=== PATIENT | male | born 1960 | race Hispanic/Latino ===

== ENCOUNTER → 2017-06-09 | Outpatient (CLI) | payer MEDICAID ==
[~2017-06-09] MED LIST: ASPI-1181 PO; ATOR10TA69 PO; CARV12.511 PO; FENO145T37 PO; TRIH2TAB3 PO
== END | disposition home or self-care (01) ==
LOC: EDUNIT# 09:30 → SHCH 10:09
PROVIDERS: ATTEND Internal Medicine Cardiovascular Disease
DX: E78.5 Hyperlipidemia, unspecified (principal); R01.1 Cardiac murmur, unspecified
CPT/HCPCS: 93306

== ENCOUNTER 2017-10-12 07:54 | Day surgery (SDC) | payer MEDICAID ==
[2017-10-08 12:19] LABS: BASOPHILS % (AUTO) 0.6 % (0.0-5.0); EOSINOPHILS % (AUTO) 2.5 % (0.0-8.0); HEMATOCRIT 35.4 % (42-54); LYMPHOCYTES % (AUTO) 14.8 % (21.0-51.0); MEAN CORPUSCULAR HEMOGLOBIN 29.8 pg (27.0-33.0); MEAN CORPUSCULAR HGB CONC 34.8 g/dL (32.0-36.0); MEAN CORPUSCULAR VOLUME 85.6 fL (79-99); MONOCYTES % (AUTO) 10.9 % (3.0-13.0); NEUTROPHILS % (AUTO) 71.2 % (40.0-77.0); PLATELET COUNT (AUTO) 160 K/uL (130-400); RED BLOOD CELL COUNT(AUTO) 4.14 MIL/uL (4.50-6.20); WHITE BLOOD COUNT (AUTO) 5.4 K/uL (4.8-10.8)
[2017-10-08 12:23] VITALS: BP 141/66
[2017-10-08 12:35] LABS: INR 1.09 (0.85-1.15); PROTHROMBIN TIME 11.4 SEC (9.6-11.6)
[2017-10-08 12:39] LABS: CREATININE 1.6 mg/dL (0.5-1.5); POTASSIUM 4.1 mmol/L (3.5-5.1)
[~2017-10-12] VITALS: Ht 160 cm; Wt 76.2 kg
[2017-10-12] VITALS (26 sets, daily range): BP systolic 87–215; BP diastolic 46–122
[2017-10-12] MEDS ORDERED: SODIUM CHLORIDE 0.9% 1000ML 1,000 ML IV SCH (08:00)
[2017-10-12] MEDS ORDERED: LIDOCAINE HCL 2% VISCOUS 15 ML UDCUP PO SCH (08:30)
[2017-10-12] MEDS ORDERED: MIDAZOLAM HCL 1 MG/ML 2ML VIAL ONE ×3 (09:32→13:10)
[2017-10-12] MEDS: FENTANYL CITRATE PF 50 MCG/1 ML 2ML VIAL ONE (12:56)
[2017-10-12] MEDS ORDERED: FLUMAZENIL 0.1MG/1ML 5ML VIAL IV ONE (13:16)
[2017-10-12] MEDS ORDERED: HYDRALAZINE HCL 20 MG/ML VIAL ONE (13:17)
[2017-10-12] MEDS ORDERED: FENTANYL CITRATE PF 50 MCG/1 ML 2ML VIAL IVP ONE ×3 (17:15→17:30)
[2017-10-12] MEDS ORDERED: MIDAZOLAM HCL 1 MG/ML 2ML VIAL IVP ONE ×2 (17:30)
== END 2017-10-12 15:30 ==
LOC: DAH 07:54
PROVIDERS: ATTEND Internal Medicine Cardiovascular Disease
DX: D15.1 Benign neoplasm of heart (principal); I12.9 Hypertensive chronic kidney disease with stage 1 through stage 4 chronic kidney disease, or unspecified chronic kidney disease; E11.22 Type 2 diabetes mellitus with diabetic chronic kidney disease; N18.9 Chronic kidney disease, unspecified; Z82.49 Family history of ischemic heart disease and other diseases of the circulatory system; Z90.5 Acquired absence of kidney; F20.9 Schizophrenia, unspecified; Z79.899 Other long term (current) drug therapy; Z87.891 Personal history of nicotine dependence; Z68.29 Body mass index [BMI] 29.0-29.9, adult
CPT/HCPCS: 36415; 80048; 85025; 85610; 85730; 93312; A4606; J0360; J2250 ×3; J3010; J7030; J3490

== ENCOUNTER → 2017-12-17 | Outpatient (CLI) | payer MEDICAID | END | disposition home or self-care (01) | LOC: RAH 08:25 | PROVIDERS: ATTEND Internal Medicine Gastroenterology | DX: R13.10 Dysphagia, unspecified (principal) | CPT/HCPCS: 74220 ==

== ENCOUNTER → 2018-04-13 | Outpatient (CLI) | payer MEDICAID ==
[~2018-04-13] MED LIST changes: +LIDOCAINE HCL MPF 1% 5ML VIAL ONE
[2018-04-13 09:36] LABS: INR 1.07 (0.85-1.15); PARTIAL THROMBOPLASTIN TIME 32.3 SEC (26.3-35.5); PROTHROMBIN TIME 11.2 SEC (9.6-11.6)
== END | disposition home or self-care (01) ==
LOC: RAH 08:30
PROVIDERS: ATTEND Internal Medicine Medical Oncology
DX: E04.1 Nontoxic single thyroid nodule (principal)
CPT/HCPCS: 36415; 60100; 76942; 85610; 85730; 88161; 88173; 88305 ×2; J3490

== ENCOUNTER → 2018-04-20 | Outpatient (CLI) | payer MEDICAID ==
[~2018-04-20] MED LIST changes: -LIDOCAINE HCL MPF 1% 5ML VIAL ONE
== END | disposition home or self-care (01) ==
LOC: RAH 12:40
PROVIDERS: ATTEND Internal Medicine Medical Oncology
DX: M81.0 Age-related osteoporosis without current pathological fracture (principal); Z85.528 Personal history of other malignant neoplasm of kidney
CPT/HCPCS: 78306; A9503

== ENCOUNTER 2018-10-25 05:36 | Inpatient (IN) | payer MEDICAID | END 2018-10-29 18:10 | disposition home or self-care (01) | LOC: DAH 05:36 → 2AH 10-27 14:22 → 2CV 05:37 → 2DH 10-27 21:15 | PROC: 02Q50ZZ Repair Atrial Septum, Open Approach (ICD-10-PCS; principal; 2018-10-25 10:34) | PROC: B2101ZZ Fluoroscopy of Single Coronary Artery using Low Osmolar Contrast (ICD-10-PCS; 2018-10-25 10:34) | PROC: 4A023N7 Measurement of Cardiac Sampling and Pressure, Left Heart, Percutaneous Approach (ICD-10-PCS; 2018-10-25 10:34) | PROC: B2151ZZ Fluoroscopy of Left Heart using Low Osmolar Contrast (ICD-10-PCS; 2018-10-25 10:34) | PROC: 02B Heart and Great Vessels, Excision (ICD-10-PCS; 2018-10-25 10:34) | DX: D15.1 Benign neoplasm of heart (principal); E11.22 Type 2 diabetes mellitus with diabetic chronic kidney disease; Q21.1 Atrial septal defect; Q25.0 Patent ductus arteriosus; D62 Acute posthemorrhagic anemia; N18.9 Chronic kidney disease, unspecified; I12.9 Hypertensive chronic kidney disease with stage 1 through stage 4 chronic kidney disease, or unspecified chronic kidney disease; E78.5 Hyperlipidemia, unspecified; Z87.891 Personal history of nicotine dependence ==

== ENCOUNTER 2018-11-09 21:31 | Observation (INO) | payer MEDICAID ==
[~2018-11-09] VITALS: Ht 160 cm; Wt 83.5 kg
[~2018-11-09 21:31] MED LIST changes: -FENO145T37 PO
[2018-11-09 21:48] LABS: BASOPHILS % (AUTO) 1.2 % (0.0-5.0); EOSINOPHILS % (AUTO) 1.9 % (0.0-8.0); HEMATOCRIT 26.3 % (42-54); LYMPHOCYTES % (AUTO) 11.5 % (21.0-51.0); MEAN CORPUSCULAR HEMOGLOBIN 29.6 pg (27.0-33.0); MEAN CORPUSCULAR HGB CONC 34.3 g/dL (32.0-36.0); MEAN CORPUSCULAR VOLUME 86.4 fL (79-99); MONOCYTES % (AUTO) 10.1 % (3.0-13.0); NEUTROPHILS % (AUTO) 75.3 % (40.0-77.0); PLATELET COUNT (AUTO) 224 K/uL (130-400); RED BLOOD CELL COUNT(AUTO) 3.04 MIL/uL (4.50-6.20); RED CELL DISTRIBUTION WIDTH 15.1 % (11.0-15.5); WHITE BLOOD COUNT (AUTO) 8.9 K/uL (4.8-10.8)
[2018-11-09] MEDS ORDERED: ASPIRIN 325 MG TABLET ONE (21:51)
[2018-11-09] MEDS ORDERED: FUROSEMIDE 10 MG/ML 4ML VIAL ONE (21:58)
[2018-11-09] MEDS ORDERED: FUROSEMIDE 10 MG/ML 2ML VIAL ONE (21:58)
[2018-11-09 22:00] LABS: INR 1.09 (0.85-1.15); PARTIAL THROMBOPLASTIN TIME 33.5 SEC (26.3-35.5); PROTHROMBIN TIME 11.4 SEC (9.6-11.6)
[2018-11-09 22:06] LABS: B-TYPE NATRIURETIC PEPTIDE 181 pg/mL (0-100)
[2018-11-09 22:12] LABS: ABG BASE EXCESS -2.1 mmol/L (-2.0-3.0); ABG HCO3 20.9 mmol/L (21.0-28.0); ABG OXYGEN SATURATION 95.1 % (95.0-99.0); ABG PCO2 31 mmHg (35-48)
[2018-11-09 22:14] LABS: CREATININE 1.4 mg/dL (0.5-1.5); POTASSIUM 3.9 mmol/L (3.5-5.1)
[2018-11-09 22:24] LABS: ALBUMIN 2.7 g/dL (3.5-5.0); BILIRUBIN,TOTAL 0.4 mg/dL (0.2-1.0); TOTAL PROTEIN, SERUM 6.2 g/dL (6.0-8.3)
[2018-11-09] MEDS ORDERED: NITROGLYCERIN 1GM/1 INCH PACKET TD ONE (23:51)
[2018-11-10] MEDS ORDERED: NITROGLYCERIN 1GM/1 INCH PACKET TD SCH
[2018-11-10 04:12] LABS: TROPONIN I 0.05 ng/mL (0.00-0.06)
[2018-11-10] MEDS ORDERED: FUROSEMIDE 20 MG TABLET PO SCH (09:00)
[2018-11-10] MEDS ORDERED: NITROGLYCERIN 1GM/1 INCH PACKET TD ONE (10:44)
[2018-11-10 11:05] LABS: CREATINE KINASE, TOTAL 90 U/L (21-232); MYOGLOBIN 117 ng/mL (10-92); TROPONIN I < 0.04 ng/mL (0.00-0.06)
--- NOTE | 2018-11-10 11:43 | NUR ---
[facility] MET WITH PT AND SISTER HAYES LASSITER [phone]. PT ON SSD, LIVES WITH FATHER AND 2 SISTERS. PT IS INDEPENDENT OF ADLS, NO DME ( HAS ACCESS TO [facility], W/C) NO IN HOME CARE SERVICES. HAS RX COVERAGE. PLAN IS HOME WITH FAMILY Addendum: 11/10/18 at 1145 by AMNA BETANCUR Amended: Links added.
[2018-11-10] MEDS ORDERED: ACETAMINOPHEN-CODEINE 300/30MG TAB PO PRN ×2 (14:30)
[2018-11-10] MEDS ORDERED: GLUCAGON 1MG KIT 1 MG ML IM PRN (14:30)
[2018-11-10] MEDS ORDERED: ALBUTEROL SULFATE 0.083% 2.5 MG/3 ML INH IH PRN (14:30)
[2018-11-10] MEDS ORDERED: NITROGLYCERIN 0.4 MG SL TAB SL PRN (14:30)
[2018-11-10] MEDS ORDERED: GUAIFENESIN-DM 200/20 MG 10 ML PO PRN (14:30)
[2018-11-10] MEDS ORDERED: ZOLPIDEM TARTRATE 5 MG TAB PO PRN (14:30)
[2018-11-10] MEDS ORDERED: POTASSIUM CHLORIDE 20 MEQ ERTAB PO PRN (14:30)
[2018-11-10] MEDS ORDERED: POTASSIUM CHLORIDE 10% ELIXIR 20 MEQ/15 ML UDCUP PO PRN (14:30)
[2018-11-10] MEDS ORDERED: LACTULOSE 20 GM/30 ML UDCUP PO PRN (14:30)
[2018-11-10] MEDS ORDERED: POTASSIUM CHLORIDE 20MEQ/100ML 100 ML IV PRN (14:30)
[2018-11-10] MEDS ORDERED: DEXTROSE 50%-WATER 50 ML DISP.SYRIN IV PRN (14:30)
[2018-11-10] MEDS ORDERED: DIPHENHYDRAMINE HCL 25 MG CAPSULE PO PRN (14:30)
[2018-11-10] MEDS ORDERED: ONDANSETRON HCL 4 MG/2 ML VIAL IV PRN (14:30)
[2018-11-10] MEDS ORDERED: LIDOCAINE HCL-MPF 1% 2ML VIAL IVP PRN (14:30)
[2018-11-10] MEDS ORDERED: ACETAMINOPHEN 325 MG TAB PO PRN ×2 (14:30)
[2018-11-10] MEDS ORDERED: NIFE30TA91 PO (14:56)
[2018-11-10] MEDS ORDERED: PRAV20TA4 PO (14:56)
[2018-11-10 15:00] VITALS: BP 120/76
[2018-11-10 15:35] LABS: APPEARANCE,URINE Clear (CLEAR); BILIRUBIN,URINE Negative (NEGATIVE); COLOR,URINE Yellow (YELLOW); GLUCOSE, URINE (UA) Negative (NEGATIVE); KETONES,URINE Negative (NEGATIVE); LEUKOCYTE ESTERASE ,URINE Negative (NEGATIVE); NITRATE,URINE Negative (NEGATIVE); OCCULT BLOOD,URINE Negative (NEGATIVE); PROTEIN,URINE POS 2+ mg/dL (NEGATIVE)
[2018-11-10] MEDS: NITROGLYCERIN 1GM/1 INCH PACKET TD SCH ×2 (15:38→21:01)
[2018-11-10 15:53] LABS: BACTERIA,URINE Rare /HPF (None Seen); RBC,URINE 0-1 /HPF (0-1); WBC,URINE 0-1 /HPF (0-1)
[2018-11-10 15:54] LABS: SQUAMOUS EPITHELIAL CELL,UR None Seen /HPF (0-2)
[2018-11-10 16:00] VITALS: BP 116/72
[2018-11-10 16:54] LABS: CREATINE KINASE, TOTAL 77 U/L (21-232); MYOGLOBIN 97 ng/mL (10-92); TROPONIN I < 0.04 ng/mL (0.00-0.06)
[2018-11-10] MEDS: FUROSEMIDE 10 MG/ML 4ML VIAL IVP SCH (19:42)
[2018-11-10] MEDS: CARVEDILOL 12.5 MG TABLET PO SCH (19:43)
[2018-11-10] MEDS: FAMOTIDINE 20MG TAB 20 MG TAB PO SCH (19:44)
[2018-11-10] MEDS: TRIHEXYPHENIDYL HCL 2 MG PO SCH (19:51)
[2018-11-10 20:16] VITALS: BP 127/71
[2018-11-10] MEDS ORDERED: ATORVASTATIN CALCIUM 10 MG TABLET PO SCH (21:00)
[2018-11-10] MEDS ORDERED: FAMOTIDINE 20MG TAB 20 MG TAB PO SCH (21:00)
[2018-11-10 23:37] VITALS: BP 123/75
[2018-11-11] MEDS: NITROGLYCERIN 1GM/1 INCH PACKET TD SCH ×3 (03:30→14:45)
[2018-11-11 04:03] VITALS: BP 134/87
[2018-11-11 07:49] VITALS: BP 140/81
[2018-11-11] MEDS ORDERED: NIFEDIPINE ER 30 MG TAB PO SCH (08:00)
[2018-11-11] MEDS ORDERED: ENOXAPARIN SODIUM 40 MG/0.4 ML SYRINGE SQ SCH (09:00)
[2018-11-11] MEDS ORDERED: ASPIRIN 81 MG EC TAB PO SCH (09:00)
[2018-11-11] MEDS: FUROSEMIDE 10 MG/ML 4ML VIAL IVP SCH (10:01)
[2018-11-11] MEDS: FAMOTIDINE 20MG TAB 20 MG TAB PO SCH (10:01)
[2018-11-11] MEDS: CARVEDILOL 12.5 MG TABLET PO SCH (10:01)
[2018-11-11] MEDS: TRIHEXYPHENIDYL HCL 2 MG PO SCH (10:02)
--- NOTE | 2018-11-11 10:46 | NUR ---
Nutrition Intervention: Nutrition consult for salt and fluid rest. education. Pt. admitted with Dx of R/O ACS. Pt. on 2gm Na 75gm CCD Heart Healthy diet, 1200ml fluid rest. with good p.o. intake, per pt. Labs reviewed(Alb 2.7, Na 124). LBM: 11/09/18. SR-23, mid chest incision. Pt. with 2+ BLE edema. BMI: 32.6, Obesity Grade I. Pt. educated on Low Sodium diet and 1200ml fluid rest. and provided with education material. Pt. verbalized understanding. Recommendations: 1) Continue current diet. 2) Low Sodium and 1200ml Fluid rest. diet education given to patient. 3) Continue to monitor pt's nutritional status. 4) Consult RD as nutrition concerns arise. Addendum: 11/11/18 at [address] Amended: Links added.
[2018-11-11 11:59] VITALS: BP 134/71
[2018-11-11] MEDS ORDERED: FUROSEMIDE 10 MG/ML 4ML VIAL IV SCH (15:45)
[2018-11-11 15:50] VITALS: BP 141/74
[2018-11-11] MEDS ORDERED: FURO40TA7 PO (17:58)
== END 2018-11-11 18:25 | disposition home or self-care (01) ==
LOC: EDH 21:31 → EDHIP 21:32 → 4BH 11-10 14:33
PROVIDERS: ADMIT Internal Medicine; ATTEND Internal Medicine
DX: I11.0 Hypertensive heart disease with heart failure (principal); I50.9 Heart failure, unspecified; E11.9 Type 2 diabetes mellitus without complications; E66.9 Obesity, unspecified; E78.5 Hyperlipidemia, unspecified; R06.02 Shortness of breath; R79.1 Abnormal coagulation profile; I25.10 Atherosclerotic heart disease of native coronary artery without angina pectoris; J44.9 Chronic obstructive pulmonary disease, unspecified; Z85.528 Personal history of other malignant neoplasm of kidney; Z87.891 Personal history of nicotine dependence; Z90.5 Acquired absence of kidney; Z95.1 Presence of aortocoronary bypass graft; Z79.899 Other long term (current) drug therapy
CPT/HCPCS: 36415 ×2; 36600; 71045; 78580; 80053; 81001; 82550 ×4; 82803; 82948; 83874 ×4; 83880; 84443; 84484 ×4; 85025; 85378; 85610; 85730; 93005 ×4; 93306; 93970; 94664; 96372; 96374; 96376; 97039; 97116; 97161; 99284; A9540; G0378 ×27; G8978; G8979; G8980; G8981; G8982; G8983; J1650; J1940 ×5

== ENCOUNTER → 2018-12-27 | Outpatient (CLI) | payer MEDICAID ==
[~2018-12-27] MED LIST changes: -ATOR10TA69 PO; +FURO40TA7 PO; +PRAV20TA4 PO
== END | disposition home or self-care (01) ==
LOC: RAH 15:30
PROVIDERS: ATTEND Internal Medicine Medical Oncology
DX: M47.814 Spondylosis without myelopathy or radiculopathy, thoracic region (principal); C79.51 Secondary malignant neoplasm of bone; M25.78 Osteophyte, vertebrae
CPT/HCPCS: 72146

== ENCOUNTER 2019-01-09 16:27 | Inpatient (IN) | payer MEDICAID ==
[2019-01-09 16:56] LABS: APPEARANCE,URINE Clear (CLEAR); BILIRUBIN,URINE Negative (NEGATIVE); COLOR,URINE Yellow (YELLOW); GLUCOSE, URINE (UA) Negative (NEGATIVE); KETONES,URINE Negative (NEGATIVE); LEUKOCYTE ESTERASE ,URINE Negative (NEGATIVE); NITRATE,URINE Negative (NEGATIVE); OCCULT BLOOD,URINE Trace (NEGATIVE); PH,URINE 6.5 (5.0-8.0); PROTEIN,URINE POS 2+ mg/dL (NEGATIVE); UROBILINOGEN,URINE 0.2 mg/dL (0.2-1.0)
[2019-01-09 17:15] LABS: BASOPHILS % (AUTO) 0.9 % (0.0-5.0); EOSINOPHILS % (AUTO) 2.5 % (0.0-8.0); HEMATOCRIT 33.8 % (42-54); LYMPHOCYTES % (AUTO) 11.6 % (21.0-51.0); MEAN CORPUSCULAR HEMOGLOBIN 29.1 pg (27.0-33.0); MEAN CORPUSCULAR HGB CONC 35.4 g/dL (32.0-36.0); MEAN CORPUSCULAR VOLUME 82.3 fL (79-99); MONOCYTES % (AUTO) 8.2 % (3.0-13.0); NEUTROPHILS % (AUTO) 76.8 % (40.0-77.0); PLATELET COUNT (AUTO) 131 K/uL (130-400); RED CELL DISTRIBUTION WIDTH 14.5 % (11.0-15.5); WHITE BLOOD COUNT (AUTO) 6.1 K/uL (4.8-10.8)
[2019-01-09 17:17] LABS: BACTERIA,URINE Rare /HPF (None Seen); RBC,URINE 0-1 /HPF (0-1); SQUAMOUS EPITHELIAL CELL,UR None Seen /HPF (0-2); TRANSITIONAL EPI CELLS,URINE Rare /HPF (None Seen); WBC,URINE 0-1 /HPF (0-1)
[2019-01-09 17:33] LABS: INR 1.02 (0.85-1.15); PARTIAL THROMBOPLASTIN TIME 32.7 SEC (26.3-35.5); PROTHROMBIN TIME 10.7 SEC (9.6-11.6)
[2019-01-09 18:13] LABS: ALBUMIN 3.5 g/dL (3.5-5.0); BILIRUBIN,DIRECT 0.1 mg/dL (0.0-0.3); BILIRUBIN,TOTAL 0.5 mg/dL (0.2-1.0); CREATININE 1.3 mg/dL (0.5-1.5); POTASSIUM 3.9 mmol/L (3.5-5.1); TOTAL PROTEIN, SERUM 7.1 g/dL (6.0-8.3)
[2019-01-09] MEDS ORDERED: SODIUM CHLORIDE 0.9% 1000ML 1,000 ML IV ONE (19:09)
[2019-01-09] MEDS ORDERED: HYDRALAZINE HCL 20 MG/ML VIAL ONE (19:14)
[2019-01-09] MEDS: SODIUM CHLORIDE 0.9% 1000ML 1,000 ML IV SCH (19:37)
[2019-01-09] MEDS ORDERED: HYDRALAZINE HCL 20 MG/ML VIAL IV PRN (19:45)
[2019-01-09] MEDS ORDERED: ONDANSETRON HCL 4 MG/2 ML VIAL IV PRN (19:45)
[2019-01-09] MEDS ORDERED: ACETAMINOPHEN 325 MG TAB PO PRN ×2 (19:45)
[2019-01-09] MEDS: ENOXAPARIN SODIUM 30 MG/0.3 ML SQ SCH (21:00)
[2019-01-09] MEDS ORDERED: ENOXAPARIN SODIUM 30 MG/0.3 ML SQ ONE (21:55)
[2019-01-09] MEDS ORDERED: LISI-617 PO (22:52)
[2019-01-09] MEDS ORDERED: TRAM50TA4 PO (22:52)
[2019-01-10] VITALS: BP 169/91
[2019-01-10] MEDS ORDERED: DEXTROSE 50%-WATER 50 ML DISP.SYRIN IV PRN (03:30)
[2019-01-10] MEDS ORDERED: GLUCAGON 1MG KIT 1 MG ML IM PRN (03:30)
[2019-01-10 04:00] VITALS: BP 191/98
[2019-01-10] MEDS: SODIUM CHLORIDE 0.9% 1000ML 1,000 ML IV SCH (05:14)
--- NOTE | 2019-01-10 06:40 | NUR ---
B/P decreased to 141/70, P 96 after administering Hydralazine IV earlier at 0510am. Will continue to monitor.
[2019-01-10 07:00] VITALS: BP 155/86
[2019-01-10] MEDS ORDERED: SODIUM CHLORIDE 3% 500 ML IV SCH (07:15)
[2019-01-10] MEDS: INSULIN HUMULIN R 100 UNIT/ML 3ML SQ SCH ×2 (07:30→21:00)
[2019-01-10 07:31] LABS: CREATININE 1.3 mg/dL (0.5-1.5); POTASSIUM 3.8 mmol/L (3.5-5.1)
[2019-01-10] MEDS: ENOXAPARIN SODIUM 30 MG/0.3 ML SQ SCH ×2 (09:35→20:46)
[2019-01-10] MEDS: LISINOPRIL 20 MG TABLET PO SCH (09:35)
[2019-01-10 11:00] VITALS: BP 156/88
--- NOTE | 2019-01-10 11:52 | NUR ---
DCP CM met with pt discussed dc plans. Pt is independent prior to admission, lives at home with father and 2 sisters. Denies any equipments/services. Pt feels safe to go back home, siblings able to assist with transportation and needs as necessary. DC plan to home once stable. CM to cont to follow up. Addendum: 01/10/19 at 1153 by ESTHER NIX LVN CM Amended: Links added.
[2019-01-10 12:04] LABS: CREATININE 1.2 mg/dL (0.5-1.5); POTASSIUM 3.5 mmol/L (3.5-5.1); THYROID STIMULATING HORMONE 2.87 uIU/mL (0.36-3.74); URIC ACID 5.3 mg/dL (2.6-7.2)
[2019-01-10 15:39] LABS: CREATININE 1.5 mg/dL (0.5-1.5); POTASSIUM 3.8 mmol/L (3.5-5.1)
[2019-01-10 16:00] VITALS: BP 169/99
[2019-01-10 19:56] LABS: CREATININE 1.4 mg/dL (0.5-1.5); POTASSIUM 3.6 mmol/L (3.5-5.1)
[2019-01-10 20:00] VITALS: BP 153/86
[2019-01-11] VITALS (7 sets, daily range): BP systolic 126–180; BP diastolic 65–96
[2019-01-11 00:02] LABS: CREATININE 1.4 mg/dL (0.5-1.5); POTASSIUM 3.5 mmol/L (3.5-5.1)
[2019-01-11 03:44] LABS: HEMATOCRIT 32.7 % (42-54); MEAN CORPUSCULAR HEMOGLOBIN 29.4 pg (27.0-33.0); PLATELET COUNT (AUTO) 130 K/uL (130-400); RED CELL DISTRIBUTION WIDTH 14.4 % (11.0-15.5); WHITE BLOOD COUNT (AUTO) 5.7 K/uL (4.8-10.8)
[2019-01-11 03:54] LABS: CREATININE 1.4 mg/dL (0.5-1.5); POTASSIUM 3.5 mmol/L (3.5-5.1)
[2019-01-11 04:12] LABS: LYMPHOCYTES % (MANUAL) 15 % (22-44); MAN.DIFF COMMENT-IMPRESSION MANUAL DIFFERENTIAL; MONOCYTES % (MANUAL) 14 % (2-9); PLATELET MORPHOLOGY COMMENT ADEQUATE; SEGMENTED NEUTROPHILS % 71 % (40-70)
[2019-01-11] MEDS: INSULIN HUMULIN R 100 UNIT/ML 3ML SQ SCH ×4 (05:44→21:00)
[2019-01-11] MEDS: LISINOPRIL 20 MG TABLET PO SCH (09:03)
[2019-01-11] MEDS: ENOXAPARIN SODIUM 30 MG/0.3 ML SQ SCH (09:04)
[2019-01-11] MEDS ORDERED: AMLODIPINE BESYLATE 5 MG TAB PO SCH (12:15)
[2019-01-11] MEDS ORDERED: AMLODIPINE BESYLATE 5 MG TAB PO ONE (17:22)
[2019-01-12 04:11] VITALS: BP 145/87
[2019-01-12 05:40] LABS: HEMATOCRIT 33.3 % (42-54); MEAN CORPUSCULAR HEMOGLOBIN 29.3 pg (27.0-33.0); MEAN CORPUSCULAR HGB CONC 34.3 g/dL (32.0-36.0); MEAN CORPUSCULAR VOLUME 85.3 fL (79-99); PLATELET COUNT (AUTO) 129 K/uL (130-400); RED BLOOD CELL COUNT(AUTO) 3.91 MIL/uL (4.50-6.20); RED CELL DISTRIBUTION WIDTH 14.7 % (11.0-15.5); WHITE BLOOD COUNT (AUTO) 5.4 K/uL (4.8-10.8)
[2019-01-12 05:46] LABS: CREATININE 1.4 mg/dL (0.5-1.5); POTASSIUM 3.6 mmol/L (3.5-5.1)
[2019-01-12] MEDS: INSULIN HUMULIN R 100 UNIT/ML 3ML SQ SCH ×2 (05:48→11:30)
[2019-01-12 08:00] VITALS: BP 162/89
[2019-01-12] MEDS: LISINOPRIL 20 MG TABLET PO SCH (08:45)
[2019-01-12] MEDS ORDERED: ENOXAPARIN SODIUM 30 MG/0.3 ML SQ SCH (09:00)
[2019-01-12] MEDS ORDERED: AMLODIPINE BESYLATE 5 MG TAB PO SCH (09:00)
[2019-01-12 11:59] VITALS: BP 162/89
--- NOTE | 2019-01-12 14:00 | NUR ---
PER DR. DELROY HERNANDEZ TO D/C PATIENT HOME F/U IN 1-2 WEEKS.
[2019-01-12] MEDS ORDERED: AMLO10TA7 PO (14:31)
[2019-01-12] MEDS ORDERED: LISI-613 PO (14:31)
--- NOTE | 2019-01-12 16:46 | NUR ---
Discharge teaching completed in the room with pt and . Emphasis on dx, s/s to monitor for, when to seek emergency care, and when to dial 911. Pt is to follow up with PCP Jayla Oneil NP, on 01/17 @ 1100 am, and with Dr. Hunter on 01/24 at 11:00 am. Written rx for amlodipine and lisinopril given to pt. Education provided regarding purpose, route, frequency, and duration of treatment, as well as side effects and adverse effects. Discussed home medications as reconciled by MD on discharge orders. PIV removed from right forearm, tip intact. Dressed with sterile 2x2 and band aid after hemostasis. TELE PACK removed, given to PARAG Dinh CNA. Pt wheeled to front lobby by [facility] staff for transport home via private car. Pt in stable condition at time discharge.
[2019-01-13] MEDS ORDERED: AMLODIPINE BESYLATE 5 MG TAB PO SCH (09:00)
== END 2019-01-12 16:45 | disposition home or self-care (01) | DRG 426 ==
LOC: EDH 16:27 → EDHIP 16:28 → 3AH 21:25
PROVIDERS: ADMIT Internal Medicine; ATTEND Internal Medicine
DX: E87.1 Hypo-osmolality and hyponatremia (principal); E11.21 Type 2 diabetes mellitus with diabetic nephropathy; R29.6 Repeated falls; Z85.528 Personal history of other malignant neoplasm of kidney; Z90.5 Acquired absence of kidney
CPT/HCPCS: 36415; 70450; 71046; 80048; 80076; 81001; 82948; 83930; 84443; 84550; 85025; 85027; 85610; 85730; 93005; G0378; J0360; J1650; J3490; J7030

== ENCOUNTER → 2019-06-26 | Outpatient (CLI) | payer MEDICAID ==
[~2019-06-26] MED LIST changes: +AMLO10TA7 PO; +LISI-613 PO; +TRAM50TA4 PO
== END | disposition home or self-care (01) ==
LOC: RAH 11:36
PROVIDERS: ATTEND Internal Medicine
DX: E04.1 Nontoxic single thyroid nodule (principal)
CPT/HCPCS: 76536

== ENCOUNTER → 2019-08-07 | Outpatient (CLI) | payer MEDICAID ==
[2019-08-07 10:14] LABS: T4 (THYROXINE) 9.9 ug/dL (4.7-13.3); THYROID STIMULATING HORMONE 4.34 uIU/mL (0.36-3.74)
[2019-08-07 10:29] LABS: INR 1.07 (0.85-1.15); PROTHROMBIN TIME 11.2 SEC (9.6-11.6)
--- NOTE | 2019-08-07 11:35 | NUR ---
US GUIDED FNA/BIOPSY RIGHT THYROID NODULE PROCEDURE PERFORMED BY DR. HERNANDEZ AND DR. THOMPSON. PUNCTURE SITE RIGHT SIDE OF NECK. PATIENT TOLERATED PROCEDURE WELL. SPECIMEN X 5 COLLECTED BY LAB PERSONNEL. END OF PROCEDURE AT 1210. BIOPSY NEEDLE REMOVED AND DRESSING APPLIED. NO BLEEDING NOTED. DISCHARGE INSTRUCTIONS GIVEN TO PATIENT AND VERBALIZED UNDERSTANDING. DISCHARGED AMBULATORY @1225, STABLE, AAO X 3. NO C/O PAIN.
== END ==
LOC: RAH 08:55
PROVIDERS: ATTEND Internal Medicine
DX: E04.2 Nontoxic multinodular goiter (principal); I12.9 Hypertensive chronic kidney disease with stage 1 through stage 4 chronic kidney disease, or unspecified chronic kidney disease; E11.22 Type 2 diabetes mellitus with diabetic chronic kidney disease; E78.5 Hyperlipidemia, unspecified; N18.3 Chronic kidney disease, stage 3 (moderate); Z90.5 Acquired absence of kidney; Z85.528 Personal history of other malignant neoplasm of kidney; E66.9 Obesity, unspecified; Z87.891 Personal history of nicotine dependence; Z80.8 Family history of malignant neoplasm of other organs or systems
CPT/HCPCS: 10005; 36415; 60100; 76942; 84436; 84439; 84443; 85610; 85730; 88108; 88173; 88305

== ENCOUNTER → 2020-08-13 | Outpatient (CLI) | payer MEDICAID ==
[~2020-08-13] MED LIST changes: +AMLO-258 PO; -AMLO10TA7 PO; -ASPI-1181 PO; +ASPI-1443 PO; -LISI-613 PO; +LISI20TA24 PO
== END | disposition home or self-care (01) ==
LOC: RAH 14:37
PROVIDERS: ATTEND Internal Medicine
DX: E04.2 Nontoxic multinodular goiter (principal)
CPT/HCPCS: 76536

== ENCOUNTER → 2020-09-19 | Outpatient (CLI) | payer MEDICAID ==
[2020-09-19 11:50] LABS: INR 1.06 (0.85-1.15); PROTHROMBIN TIME 11.5 SEC (9.6-11.6)
== END | disposition home or self-care (01) ==
LOC: RAH 10:07
PROVIDERS: ATTEND Internal Medicine
DX: E04.2 Nontoxic multinodular goiter (principal)
CPT/HCPCS: 10005; 36415; 76942; 85610; 85730; 88173; 88305

== ENCOUNTER → 2021-07-25 | Outpatient (CLI) | payer MEDICAID | END | disposition home or self-care (01) | LOC: SHCH 08:42 | PROVIDERS: ATTEND Internal Medicine Cardiovascular Disease | DX: I65.21 Occlusion and stenosis of right carotid artery (principal) | CPT/HCPCS: 93880 ==

== ENCOUNTER → 2021-12-16 | Outpatient (CLI) | payer MEDICAID | END | disposition home or self-care (01) | LOC: RAH 10:57 | PROVIDERS: ATTEND Internal Medicine | DX: E04.2 Nontoxic multinodular goiter (principal) | CPT/HCPCS: 76536 ==

== ENCOUNTER → 2024-08-07 | Outpatient (CLI) | payer MEDICARE ==
[~2024-08-07] MED LIST changes: -AMLO-258 PO; -ASPI-1443 PO; +ATOR10 PO; -CARV12.511 PO; -FURO40TA7 PO; +HYDR25TA67 PO; +IRON1CAP32 PO; -PRAV20TA4 PO; +TAMS-1 PO; -TRAM50TA4 PO
== END | disposition home or self-care (01) ==
LOC: SHCH 10:56
PROVIDERS: ATTEND Internal Medicine Cardiovascular Disease
DX: I35.0 Nonrheumatic aortic (valve) stenosis (principal); R01.1 Cardiac murmur, unspecified
CPT/HCPCS: 93306

== ENCOUNTER → 2025-02-16 | Outpatient (CLI) | payer MEDICARE ==
[~2025-02-16] MED LIST changes: -TAMS-1 PO; +TAMS-55 PO
--- NOTE | 2025-03-02 14:50 | HMCIMG ---
US RENAL SONOGRAM Indication: Malignant neoplasm of unspecified kidney Technique: Renal ultrasound was performed by a chain hooker and reviewed by a radiologist. Findings: Right Kidney: Surgically absent. No lesion seen in the right renal fossa. Left Kidney: 11.5 x 5.3 x 3.6 cm. The left kidney and upper pole there is an exophytic lesion measuring 2.2 x 1.7 x 1.7 cm. There is 2 small cortical cysts seen in the inferior pole of the left kidney measuring 1.0 x 1.0 x 1.0 cm. The second cyst measured 1.1 x 0.8 x 0.9 cm.. There is no evidence of any hydronephrosis or calculi the left kidney. Urinary bladder: Unremarkable. Impression: Status post right nephrectomy there is a hypoechoic solid mass in the upper pole of the left kidney. This is amenable for CT-guided biopsy for histological sampling.
== END | disposition home or self-care (01) ==
LOC: RAH 13:34
PROVIDERS: ATTEND Internal Medicine Medical Oncology
DX: C64.9 Malignant neoplasm of unspecified kidney, except renal pelvis (principal); N28.1 Cyst of kidney, acquired; Z90.5 Acquired absence of kidney
CPT/HCPCS: 76770